=== PATIENT | female | born 1965 | race Caucasian/White ===

== ENCOUNTER 2019-02-18 14:44 | Emergency (ER) | payer OTHER ==
[2019-02-18] MEDS ORDERED: Sodium Chloride 0.9% 10 ML Syringe FLUSH PRN (16:27)
--- NOTE | 2019-02-18 16:53 | EDM.PDOC ---
ED HPI GENERAL MEDICAL PROBLEM - General Chief Complaint: Cardiovascular Problem Stated Complaint: HIGH BP Time Seen by Provider: 02/18/19 16:22 Source of Information: Reports: Patient, RN Notes Reviewed History Limitations: Reports: No Limitations - History of Present Illness INITIAL COMMENTS - FREE TEXT/NARRATIVE: Patient is a 53-year-old female who presents to the ED for the evaluation of a couple different elevated blood pressure readings. Patient does not have a diagnosis of hypertension, and she states she has no other past medical history that she is aware of. She does not have a primary care provider, however she is scheduled to see Lu Mills at the [facility] next week Sunday February 24, 2019. The patient states that she was seen at the [facility] on Saturday for an orthopedic related issue, and was noted to have an elevated blood pressure at that time. She came back today to the walk-in clinic, for knee pain and was noted to have an elevated blood pressure once again. So she was told to the come to the ER for further management. At time of triage the patient's blood pressure was 226/111. The ER was busy at this time, and she did wait in the waiting room, however when she was brought back to a room, her blood pressure did decrease to 175/90. The patient states that she does get headaches intermittently, but she is not having any chest pain, shortness of breath, dizziness lightheadedness, nausea or vomiting, any blurred vision or double vision. She is not a smoker, she is not an alcohol user, does not use drugs. Patient states that she has felt mildly fatigued as well, and was unsure if this was related. - Related Data Allergies Allergy/AdvReac Type Severity Reaction Status Date / Time Penicillins Allergy Rash Verified 02/18/19 14:47 Home Meds: Home Meds amLODIPine [Norvasc] 5 mg PO DAILY #10 tab 02/18/19 [Rx] Past Medical History HEENT History: Reports: Impaired Vision Cardiovascular History: Reports: Hypertension Respiratory History: Reports: None Gastrointestinal History: Reports: None Genitourinary History: Reports: None [employer] History: Reports: Musculoskeletal History: Reports: None Neurological History: Reports: None Psychiatric History: Reports: None Endocrine/Metabolic History: Reports: None Hematologic History: Reports: None Immunologic History: Reports: None Oncologic (Cancer) History: Reports: None Dermatologic History: Reports: None - Infectious Disease History Infectious Disease History: Reports: None Social & Family History - Family History Family Medical History: Noncontributory - Tobacco Use Smoking Status *Q: Never Smoker - Caffeine Use Caffeine Use: Reports: Coffee, Soda - Recreational Drug Use Recreational Drug Use: No ED ROS GENERAL - Review of Systems Review Of Systems: See Below Constitutional: Denies: Fever, Chills, Malaise, Weakness Respiratory: Denies: Shortness of Breath Cardiovascular: Reports: Blood Pressure Problem (different elevated BP readings) . Denies: Chest Pain GI/Abdominal: Denies: Abdominal Pain, Constipation, Diarrhea, Nausea, Vomiting Neurological: Reports: Headache (not currently, but intermittently) ED EXAM, GENERAL - Physical Exam Exam: See Below Exam Limited By: No Limitations General Appearance: Alert, WD/WN, No Apparent Distress Eye Exam: Bilateral Eye: EOMI, Normal Inspection, PERRL Ears: Normal External Exam Nose: Normal Inspection Throat/Mouth: Normal Inspection, Normal Lips, Normal Teeth, Normal Gums, Normal Oropharynx, Normal Voice, No Airway Compromise Head: Atraumatic, Normocephalic Neck: Normal Inspection Respiratory/Chest: No Respiratory Distress, Lungs Clear, Normal Breath Sounds, No Accessory Muscle Use, Chest Non-Tender Cardiovascular: Normal Peripheral Pulses, Regular Rate, Rhythm, No Edema, No Murmur Peripheral Pulses: 3+: Radial (L), Radial (R) GI/Abdominal: Normal Bowel Sounds, Soft, Non-Tender, No Distention, No Mass Extremities: Normal Inspection, Normal Capillary Refill Neurological: Alert, Oriented, Normal Cognition, No Motor/Sensory Deficits Psychiatric: Normal Affect, Normal Mood Skin Exam: Warm, Dry, Intact, Normal Color, No Rash Course - Vital Signs Last Recorded V/S: Last Vital Signs Temp 97.0 F 02/18/19 14:49 Pulse 69 02/18/19 14:49 Resp 16 02/18/19 14:49 BP 226/111 H 02/18/19 14:49 Pulse Ox 98 02/18/19 14:49 - Orders/Labs/Meds Orders: Active Orders 24 hr Category Date Time Status Peripheral IV Care [RC] . DIRECTED Care 02/18/19 16:27 Ordered Sodium Chloride 0.9% [Saline Flush] Med 02/18/19 16:27 Ordered 10 ml FLUSH ASDIRECTED PRN Peripheral IV Insertion Adult [OM.PC] Stat Oth 02/18/19 16:27 Ordered Medication Orders Sodium Chloride (Saline Flush) 10 ml FLUSH ASDIRECTED PRN PRN Reason: Keep Vein Open Labs: Laboratory Tests 02/18/19 02/18/19 02/18/19 Range/Units 16:39 16:39 16:39 WBC 7.36 (3.98-10.04) K/mm3 RBC 4.56 (3.98-5.22) M/mm3 Hgb 10.9 L D (11.2-15.7) gm/dl Hct 35.9 (34.1-44.9) % MCV 78.7 L D (79.4-94.8) fl MCH 23.9 L (25.6-32.2) pg MCHC 30.4 L (32.2-35.5) g/dl RDW Std Deviation 52.7 H (36.4-46.3) fL Plt Count 476 H D (182-369) K/mm3 MPV 9.6 (9.4-12.3) fl Neut % (Auto) 69.9 (34.0-71.1) % Lymph % (Auto) 18.8 L (19.3-51.7) % Starr % (Auto) 9.5 (4.7-12.5) % Eos % (Auto) 1.5 (0.7-5.8) Baso % (Auto) 0.3 (0.1-1.2) % Neut # (Auto) 5.15 (1.56-6.13) K/mm3 Lymph # (Auto) 1.38 (1.18-3.74) K/mm3 Starr # (Auto) 0.70 H (0.24-0.36) K/mm3 Eos # (Auto) 0.11 (0.04-0.36) K/mm3 Baso # (Auto) 0.02 (0.01-0.08) K/mm3 Sodium 141 (136-145) mEq/L Potassium 3.9 (3.5-5.1) mEq/L Chloride 105 (98-107) mEq/L Carbon Dioxide 27 (21-32) mEq/L Anion Gap 12.9 (5-15) BUN 12 (7-18) mg/dL Creatinine 0.7 (0.55-1.02) mg/dL Est Cr Clr Drug Dosing 73.51 mL/min Estimated GFR (MDRD) > 60 (>60) mL/min BUN/Creatinine Ratio 17.1 (14-18) Glucose 92 (74-106) mg/dL Calcium 8.6 (8.5-10.1) mg/dL Total Bilirubin 0.2 (0.2-1.0) mg/dL AST 10 L (15-37) U/L ALT 16 (14-59) U/L Alkaline Phosphatase 61 (46-116) U/L Total Protein 7.8 (6.4-8.2) g/dl Albumin 4.1 (3.4-5.0) g/dl Globulin 3.7 gm/dL Albumin/Globulin Ratio 1.1 (1-2) TSH 3rd Generation 5.967 H (0.358-3.74) uIU/mL Urine Color (Yellow) Urine Appearance (Clear) Urine pH (5.0-8.0) Ur Specific Paterson (1.005-1.030) Urine Protein (Negative) Urine Glucose (UA) (Negative) Urine Ketones (Negative) Urine Occult Blood (Negative) Urine Nitrite (Negative) Urine Bilirubin (Negative) Urine Urobilinogen (0.2-1.0) Ur Leukocyte Esterase (Negative) Urine RBC (0-5) /hpf Urine WBC (0-5) /hpf Ur Squamous Epith Cells (0-5) /hpf Urine Bacteria (FEW) /hpf Urine Mucus (FEW) /hpf 02/18/19 Range/Units 17:25 WBC (3.98-10.04) K/mm3 RBC (3.98-5.22) M/mm3 Hgb (11.2-15.7) gm/dl Hct (34.1-44.9) % MCV (79.4-94.8) fl MCH (25.6-32.2) pg MCHC (32.2-35.5) g/dl RDW Std Deviation (36.4-46.3) fL Plt Count (182-369) K/mm3 MPV (9.4-12.3) fl Neut % (Auto) (34.0-71.1) % Lymph % (Auto) (19.3-51.7) % Starr % (Auto) (4.7-12.5) % Eos % (Auto) (0.7-5.8) Baso % (Auto) (0.1-1.2) % Neut # (Auto) (1.56-6.13) K/mm3 Lymph # (Auto) (1.18-3.74) K/mm3 Starr # (Auto) (0.24-0.36) K/mm3 Eos # (Auto) (0.04-0.36) K/mm3 Baso # (Auto) (0.01-0.08) K/mm3 Sodium (136-145) mEq/L Potassium (3.5-5.1) mEq/L Chloride (98-107) mEq/L Carbon Dioxide (21-32) mEq/L Anion Gap (5-15) BUN (7-18) mg/dL Creatinine (0.55-1.02) mg/dL Est Cr Clr Drug Dosing mL/min Estimated GFR (MDRD) (>60) mL/min BUN/Creatinine Ratio (14-18) Glucose (74-106) mg/dL Calcium (8.5-10.1) mg/dL Total Bilirubin (0.2-1.0) mg/dL AST (15-37) U/L ALT (14-59) U/L Alkaline Phosphatase (46-116) U/L Total Protein (6.4-8.2) g/dl Albumin (3.4-5.0) g/dl Globulin gm/dL Albumin/Globulin Ratio (1-2) TSH 3rd Generation (0.358-3.74) uIU/mL Urine Color Light yellow (Yellow) Urine Appearance Clear (Clear) Urine pH 7.0 (5.0-8.0) Ur Specific Paterson 1.020 (1.005-1.030) Urine Protein Negative (Negative) Urine Glucose (UA) Negative (Negative) Urine Ketones Negative (Negative) Urine Occult Blood Negative (Negative) Urine Nitrite Negative (Negative) Urine Bilirubin Negative (Negative) Urine Urobilinogen 0.2 (0.2-1.0) Ur Leukocyte Esterase Negative (Negative) Urine RBC 0-5 (0-5) /hpf Urine WBC 0-5 (0-5) /hpf Ur Squamous Epith Cells 10-20 H (0-5) /hpf Urine Bacteria Rare (FEW) /hpf Urine Mucus Not seen (FEW) /hpf Meds: Medications Generic Name Dose Route Start Last Admin Trade Name Freq PRN Reason Stop Dose Admin Sodium Chloride 10 ml 02/18/19 16:27 Saline Flush FLUSH ASDIRECTED PRN Keep Vein Open Discontinued Medications Generic Name Dose Route Start Last Admin Trade Name Freq PRN Reason Stop Dose Admin Amlodipine Besylate 5 mg 02/18/19 18:07 Norvasc PO 02/18/19 18:08 DAILY ONE - Re-Assessments/Exams Free Text/Narrative Re-Assessment/Exam: 02/18/19 16:52 Patient presents to the ED for evaluation of a couple different elevated blood pressure readings. Have ordered a CBC, CMP, TSH, and urinalysis to be obtained , with an IV to be placed in case we would need to give her IV medications. At this time with her blood pressure being 175 systolically, is less likely that we will have to do any emergent management in the ER today. I did discuss with the patient limitedly options regarding starting blood pressure medications out of the ER, she states that she does see Lu Mills on Saturday, that she would be willing to possibly wait barring normal lab results today. 02/18/19 17:37 Patient's labs are resulted, and patient's CBC is essentially within normal limits, hemoglobin is mildly decreased to 10.9, suggesting slight anemia. Will recommend dietary supplementation with a few meals of red meats, and green leafy vegetables. Patient's metabolic panel is also essentially within normal limits. TSH is elevated at 5.967, which is suggest she is hypothyroid at this time. I will let the patient know this, and have her follow-up with Lu Milsl on Saturday and have her do blood pressure journaling over the weekend. 02/18/19 17:52 UA is negative at this time. Will discharge patient home with general recommendations. Departure - Departure Time of Disposition: 18:08 Disposition: Home, Self-Care 01 Condition: Fair Clinical Impression: Elevated blood pressure reading without diagnosis of hypertension Hypothyroidism Qualifiers: Hypothyroidism type: other Qualified Code(s): E03.8 - Other specified hypothyroidism Prescriptions: amLODIPine [Norvasc] 5 mg PO DAILY #10 tab Instructions: How to Take Your Blood Pressure, [id number], Hypothyroidism Referrals: PCP,None [Primary Care Provider] - Forms: ED Department Discharge Additional Instructions: You were evaluated in the ER today regarding your elevated blood pressure reading. While your blood pressure is elevated, there are no worrisome signs or symptoms that would need emergent treatment at today's visit. However it has stayed elevated, and you were given 1 dose of amlodipine 5 mg for management. Your laboratory evaluation demonstrated that your metabolic panel is within normal limits, there is no electrolyte abnormalities, your hemoglobin mildly low at 10.9, our lower limit of normal is around 11. Recommend that you increase your intake of red meats and green leafy vegetables over the weekend, this should help with that. Your TSH was high at 5.967, which means that you are possibly suffering from hypothyroidism and may need thyroid supplementation. You should follow-up with Lu Mills on Saturday, for possible re-draw and the start of supplementation if needed. You were given a couple educational handouts, 1 on how to take your blood pressure, and 1 on hypothyroidism. Please order these at your leisure. You should obtain a blood pressure cuff from [facility] [employer], to take your blood pressure over the weekend, and keep a blood pressure journal, recommend you take your blood pressure 2 times a day and write this down. You were given a prescription for amlodipine, 5 mg, please take 1 tab daily for blood pressure management. Please return to the ER at any time if your symptoms change or worsen. Sepsis Event Note - Evaluation Sepsis Screening Result: No Definite Risk - Focused Exam Vital Signs: Vital Signs Temp Pulse Resp BP Pulse Ox 02/18/19 14:49 97.0 F 69 16 226/111 H 98 Date Exam was Performed: 02/18/19 Time Exam was Performed: 18:08 - My Orders Last 24 Hours: My Active Orders 02/18/19 16:27 Peripheral IV Care [RC] . DIRECTED Sodium Chloride 0.9% [Saline Flush] 10 ml FLUSH ASDIRECTED PRN Peripheral IV Insertion Adult [OM.PC] Stat - Assessment/Plan Last 24 Hours: My Active Orders 02/18/19 16:27 Peripheral IV Care [RC] . DIRECTED Sodium Chloride 0.9% [Saline Flush] 10 ml FLUSH ASDIRECTED PRN Peripheral IV Insertion Adult [OM.PC] Stat
[2019-02-18] MEDS ORDERED: amLODIPine 5 MG Tab PO ONE (18:07)
== END 2019-02-18 18:55 | disposition home or self-care (01) ==
LOC: JD.ED 14:44
DX: R03.0 Elevated blood-pressure reading, without diagnosis of hypertension (principal); Z88.0 Allergy status to penicillin; I10 Essential (primary) hypertension; Z79.899 Other long term (current) drug therapy
CPT/HCPCS: 36415; 80053; 81001; 84443; 85025; 99284; A9270; 99283

== ENCOUNTER 2022-09-22 09:36 | Emergency (ER) | payer OTHER | END 2022-09-22 12:00 | disposition home or self-care (01) | LOC: JD.ED 09:36 | DX: S70.11XA Contusion of right thigh, initial encounter (principal); I10 Essential (primary) hypertension; Z79.899 Other long term (current) drug therapy; Z88.0 Allergy status to penicillin; W01.0XXA Fall on same level from slipping, tripping and stumbling without subsequent striking against object, initial encounter | CPT/HCPCS: 73562-26-RT; 73562-RT; 73700-26-RT; 73700-RT; 99283; 99284 ==